=== PATIENT | male | born 1940 | race Caucasian/White ===

== ENCOUNTER 2017-08-15 09:36 | Inpatient (IN) | payer OTHER ==
[~2017-08-15] VITALS: Ht 180.3 cm; Wt 81.6 kg
--- NOTE | ~2017-08-15 | HC ---
[facility] [place] [address] CONSULTATION Name: KARY IVY Room #: 430-P [facility] IN M.R.#: [id number] Admission: 08/15/17 Attend Phys: Aren Rodriguez MD Discharge: Date of : 38 Report #: [id number] THIS REPORT FOR: //name// CC: Aren Rodriguez DATE OF SERVICE: 08/16/2017 HISTORY OF PRESENT ILLNESS: The patient is a 77-year-old white male who was admitted to [facility] with worsening gait problems. This has apparently been going on for the last few months. It affects both lower extremities and upper extremities, but primarily the lower extremities. It starts spontaneously without trauma. He does have a history of Parkinson's disease. Neurology has seen him. Diagnosis is currently uncertain. They indicate it may be part of his neurodegenerative disorder, but need to exclude the possibility of some spine pathology, polymyositis or any neuropathy. They have started with MRI scanning, which is currently pending. We are seeing him in rehabilitation medicine consultation. PAST MEDICAL HISTORY: Includes Parkinson's disease. He apparently sees a neurologist in [facility]. FAMILY HISTORY: Negative for any early age stroke. SOCIAL HISTORY: He lives with his son. This is a duplex one step. Premorbidly he has utilized a cane. He has a walker as well. REVIEW OF SYSTEMS: Decreased memory, which is premorbid. No current complaints of chest pain, shortness of breath or abdominal discomfort. FAMILY HISTORY: Noncontributory. PHYSICAL EXAMINATION: GENERAL: A 77-year-old male in no obvious distress. VITAL SIGNS: Last recorded temperature 97.5, pulse 58, respirations 16, and blood pressure 136/91. NEUROLOGIC: The patient is alert, pleasant, decreased short term memory is noted. He does follow basic 1 step commands without difficulty. EOMs are full. Some evidence of masked facies. He does have cogwheeling of both upper extremities and there is some rigidity. Lower extremities, no focal calf swelling. Some mild rigidity is noted. Strength of the upper and lower extremities is probably a grade 3+ to 4-. He does have reflexes of grade 1 in the lower extremities. He is able to stand contact guard and ambulated 75 feet with the walker standby assistance. ASSESSMENT: A 77-year-old white male with the following problem list: 1. Worsening gait/ambulation difficulty with Neurology workup underway. [address] [address] CONSULTATION Name: BIJUKARY Beltran Room #: 430-P [facility] IN [facility]#: [id number] Admission: 08/15/17 Attend Phys: Aren Rodriguez MD Discharge: Date of : 38 Report #: [id number] 2. Parkinson's disease. 3. History of osteoarthritis. 4. History of urinary frequency with some bladder incontinence in the past approximately 3 days. PLAN: Neurology workup is underway. Therapies are further evaluating him. We will be glad to assist regarding rehab therapy issues as he further medically stabilizes. <ELECTRONICALLY SIGNED> By: Too Mace MD 08/19/17 1108 1010 2247 Too Mace MD /[facility]
--- NOTE | ~2017-08-15 | HC ---
[facility] [place] [address] CONSULTATION Name: KARY IVY Room #: 430-P [facility] IN ..#: [id number] Admission: 08/15/17 Attend Phys: Aren Rodriguez MD Discharge: Date of : 38 Report #: [id number] THIS REPORT FOR: //name// CC: Aren Rodriguez DATE OF SERVICE: 08/15/2017 HISTORY OF PRESENT ILLNESS: This is a 77-year-old male patient who was evaluated by me for ambulation difficulty. The history is somewhat poorly defined, but looks like this is a chronic process, which is going on from last few months. It involved both lower extremities and upper extremity, but is worse in the lower extremity. It started spontaneously without any trauma. He said he lived with his son and was able to take care of himself prior to starting of these symptoms. He does complain of some nonspecific bladder symptoms, but it is not clear whether that is associated with this or not. REVIEW OF SYSTEMS: Positive for Parkinson disease. He indicates that he goes to a neurologist in [facility], but he does not know the name. He indicates his memory has been poor, but that is nothing recent. He does have a history of osteoarthritis. To the Emergency Room physician, he has indicated that he may be having some neck pain, but that is not a very prominent pain. This is his relevant 14-point review of systems. PAST MEDICAL HISTORY: Positive for Parkinson disease. FAMILY HISTORY: Negative for any early age stroke. SOCIAL HISTORY: He lives with his son. PHYSICAL EXAMINATION: NEUROLOGIC: He is alert. He is responsive. He can tell me what month it is and what hospital he is in, but he has 0 out of 3 memory at 2 minutes interval. His speech looks intact. His cranial nerve examination 2-12 is unremarkable. He is profoundly weak in all 4 extremities. Lower extremities, he can barely move. Even the upper extremity, he has pretty significant deficit. His position sense is intact. His reflexes are present in the lower extremity. I cannot tell about plantars. He does not have much cerebellar sign and I could not look at the patient's fundus. He is a well-developed individual who does not have any dysmorphic features of eyes, ears and face. His vision and hearing looks adequate. He has unhealthy looking skin in both lower extremities. His pulses are difficult to feel. He has no edema, cyanosis or jaundice. His heart sounds were normal and there is no murmur or arrhythmias. He does not have any [place] [address] CONSULTATION Name: KARY IVY Room #: 430-P [facility].#: [id number] Admission: 08/15/17 Attend Phys: Aren Rodriguez MD Discharge: Date of : 38 Report #: [id number] VITAL SIGNS: His blood pressure is 147/94, respirations 16, pulse is 64, temperature is 97.4. LABORATORY DATA: Indicate a white count of 7.3 and his sodium is normal. There is no imaging study of CLOTH GRADER SUPERVISOR system. IMPRESSION: There is a huge number of diagnoses which are possible in this patient, which can cause him problems like this. It may be old part of his neurodegenerative disorder, but we need to exclude the possibility of some spine pathology, polymyositis or any neuropathy. Workup is going to be pretty extensive and difficult in this patient, but we will try. I discussed that aspect with him. Although, he has memory disturbances, I discussed with him and I think he understands it. He wants to have the testing done. He does not have any contraindication for MRI. RECOMMENDATIONS: 1. I will get a CT of the head and do CT of the C-spine at the same time because he was complaining of some pain there. 2. I will get an MRI done on this patient and do more blood workup. We will get him evaluated by physical therapy and I do not believe his Parkinson features are severe enough to justify changing his medication and we will try to concentrate on evaluating for any other etiology. I discussed all of it with the patient in detail and he understands and he wants to follow up with this plan. More than 50 minutes of time was spent taking care of this patient today and majority of that time was spent counseling this patient on what we will do and is alternating. <ELECTRONICALLY SIGNED> By: Martinez Oliva MD 08/16/17 1728 1944 0351 Martinez Oliva MD /nt
--- NOTE | ~2017-08-15 | EKG ---
[address] [place] [address] ELECTROCARDIOGRAM REPORT Name: KARY IVY Room #: 430-P ADM IN M.R.#: [id number] Admission: 08/15/17 Attend Phys: Aren Rodriguez MD Discharge: Date of : 38 Report #: [id number] THIS REPORT FOR: //name// [facility] ED Test Date: 2017-08-15 Test Time: 10:23:13 Pat Name: KARY IVY Department: Room: 430 Gender: M Maxillofacial Prosthetics Dentist: APPLE : 1940 Requested By: Josué Kelley Order Number: [id number] MD: Jose Armando Seo Measurements Intervals [place] Rate: 59 P: 28 ID: [id number] QRS: -32 QRSD: 102 T: QT: 478 QTc: 474 Interpretive Statements Sinus rhythm Left axis deviation RSR' in V1 or V2, probably normal variant Nonspecific T abnormalities, lateral leads Compared to ECG 12/31/2011 13:44:16 Left-axis deviation now present RSR' in V1 or V2 now present Sinus bradycardia no longer present T-wave abnormality still present Electronically Signed On 08-15-2017 17:01:56 OTR TANKER TRUCK DRIVER by Jose Armando Seo [email or web address] <ELECTRONICALLY SIGNED> By: Jose Armando Seo MD 08/15/17 1701 1023 1023 Jose Armando Seo MD /EPI
[~2017-08-15 09:36] MED LIST: AFLURIA 2045 MCG/0.4; ASPIRIN325 PO; B-12250 MCG PO; CARBIDOPA PO; CELEXA 10 MG TA10 M1 PO; CRESTOR20 MG PO; CYCLOBENZAPRINE10 MG PO; Docusate Sodium PO; FINASTERIDE PO; HYDROCODON-ACE1 EAC7 PO; HYDROCODON-ACE1 EACH PO; Hydrocodone-Apap 5-325 Tablet PO; LASIX 20 MG TAB20 MG PO; LASIX 40 MG TAB40 M1 PO; LEVODOPA PO; MESTINON60 MG PO; NORFLEX100 MG PO; PNEUMOVAX25 MCG/0.5; POTASSIUM20 PO; PROAMATINE2.5 MG PO; PROSCAR 5MG TABL5 M1 PO; REQUIP 1 MG TABL1 M1 PO; REQUIP PO; REQUIP XL2 MG; VITAMIN B-12500 MCG PO; VITAMIN B12 500 MCG PO
[2017-08-15 09:42] VITALS: BP 147/94
[2017-08-15] MEDS ORDERED: LIPITOR 20 MG T20 M1 PO (09:50)
[2017-08-15] MEDS ORDERED: MIBELAS 24 FE1 EACH PO (09:51)
[2017-08-15 10:09] LABS: ABSOLUTE NEUTROPHILS 5.1 thou/uL (1.4-8.2); BASOPHILS 0.8 % (0.0-2.0); EOSINOPHILS 2.1 % (0.0-3.0); HEMATOCRIT 42.6 % (42.0-52.0); HEMOGLOBIN 14.1 gm/dL (14.0-18.0); LYMPHOCYTES 18.7 % (24.0-44.0); MANUAL DIFF NO; MCH 32.2 pg (26.0-34.0); MCHC 33.1 g/dL (28.0-37.0); MCV 97.3 fL (80.0-100.0); MONOCYTES 8.9 % (1.0-8.0); PLATELET COUNT 179 thou/uL (150-400); POLYS 69.5 % (36.0-66.0); RBC 4.38 mil/uL (4.50-6.00); RDW 13.7 % (10.5-14.5); WBC 7.3 thou/uL (4.0-11.0)
[2017-08-15 10:19] LABS: ANION GAP 7 mmol/L (7-16); BUN 22 mg/dL (7-18); CALCIUM 9.9 mg/dL (8.5-10.1); CHLORIDE 108 mmol/L (98-107); CO2 28 mmol/L (21-32); CREATININE 1.1 mg/dL (0.7-1.3); GLUCOSE 101 mg/dL (74-106); SODIUM 143 mmol/L (136-145)
[2017-08-15 10:22] LABS: INR 1.1; PROTIME 10.9 Seconds (9.3-11.4)
[2017-08-15 10:27] LABS: ALKALINE PHOSPHATASE 137 U/L (46-116); SGOT 15 U/L (15-37); SGPT 12 U/L (30-65); TOTAL BILIRUBIN 1.7 mg/dL (<0.1-1.0); TOTAL PROTEIN 7.6 g/dL (6.4-8.2); TROPONIN-I < 0.04 ng/mL (<0.06)
[2017-08-15 12:46] LABS: URINE BILIRUBIN NEGATIVE (Negative); URINE BLOOD 3+ (Negative); URINE COLOR YELLOW; URINE GLUCOSE-RANDOM* NEGATIVE (Negative); URINE KETONES TRACE (Negative); URINE NITRITE NEGATIVE (Negative); URINE PROTEIN (DIPSTICK) NEGATIVE (Negative)
[2017-08-15 12:53] LABS: CASTS None Seen /LPF (None Seen); CRYSTALS None Seen /LPF (None Seen); RENAL EPITHELIAL CELLS 0-3 Few /LPF (None Seen); SQUAMOUS None Seen /LPF (0-3); URINE RBC >20 Many /HPF (0-2)
[2017-08-15 12:54] LABS: BACTERIA 1-9 Few /HPF (None Seen); URINE WBC None Seen /HPF (0-5)
[2017-08-15 13:17] VITALS: BP 147/94
[2017-08-15 20:00] VITALS: BP 139/88
[2017-08-16 04:30] VITALS: BP 176/117
[2017-08-16 07:04] LABS: TSH 1.843 uIU/mL (0.358-3.740)
[2017-08-16 07:31] VITALS: BP 136/91
[2017-08-16 08:08] LABS: CALCIUM 8.7 mg/dL (8.5-10.1); CREATININE 0.9 mg/dL (0.7-1.3); HEMATOCRIT 37.9 % (42.0-52.0); HEMOGLOBIN 12.6 gm/dL (14.0-18.0); MCH 32.6 pg (26.0-34.0); MCHC 33.3 g/dL (28.0-37.0); MCV 97.7 fL (80.0-100.0); RBC 3.88 mil/uL (4.50-6.00); RDW 13.8 % (10.5-14.5); WBC 7.2 thou/uL (4.0-11.0)
[2017-08-16 16:49] VITALS: BP 155/91
[2017-08-16 20:00] VITALS: BP 166/93
[2017-08-17 04:00] VITALS: BP 193/95
[2017-08-17 08:04] VITALS: BP 135/88
[2017-08-17 16:30] VITALS: BP 158/84
[2017-08-17 20:25] VITALS: BP 154/98
[2017-08-17 22:18] VITALS: BP 152/102
[2017-08-17 23:32] VITALS: BP 178/93
[2017-08-18 05:19] VITALS: BP 177/87
[2017-08-18 09:03] VITALS: BP 167/88
[2017-08-18 09:49] LABS: HEMATOCRIT 39.2 % (42.0-52.0); HEMOGLOBIN 12.9 gm/dL (14.0-18.0); MCH 32.3 pg (26.0-34.0); MCV 97.8 fL (80.0-100.0); RBC 4.01 mil/uL (4.50-6.00); RDW 13.8 % (10.5-14.5); WBC 6.1 thou/uL (4.0-11.0)
[2017-08-18 09:56] LABS: CALCIUM 9.5 mg/dL (8.5-10.1); CREATININE 0.7 mg/dL (0.7-1.3); POTASSIUM 3.4 mmol/L (3.5-5.1)
[2017-08-18 16:02] VITALS: BP 138/79
[2017-08-18 19:51] VITALS: BP 165/85
[2017-08-19 00:10] VITALS: BP 154/88
[2017-08-19 04:14] VITALS: BP 158/93
[2017-08-19 08:08] VITALS: BP 162/85
[2017-08-19] MEDS ORDERED: CARBIDOPA-LEVO1 EAC9 PO (12:56)
[2017-08-19] MEDS ORDERED: MIRALAX17 GM PO (12:57)
[2017-08-19] MEDS ORDERED: CEFDINIR300 MG PO (12:59)
== END 2017-08-19 16:34 | DRG 57 ==
LOC: ER 09:36 → EROBS 12:58 → 4E 12:58
PROVIDERS: Family Medicine; Physician Assistant; Psychiatry & Neurology Neuromuscular Medicine
DX: G20 Parkinson's disease (principal); N17.9 Acute kidney failure, unspecified; N39.0 Urinary tract infection, site not specified; I95.1 Orthostatic hypotension; F32.9 Major depressive disorder, single episode, unspecified; M19.90 Unspecified osteoarthritis, unspecified site; E78.5 Hyperlipidemia, unspecified; I10 Essential (primary) hypertension; M48.00 Spinal stenosis, site unspecified; Z79.899 Other long term (current) drug therapy; W18.39XA Other fall on same level, initial encounter; Y93.89 Activity, other specified; Y92.89 Other specified places as the place of occurrence of the external cause; Y99.8 Other external cause status
CPT/HCPCS: 10084

== ENCOUNTER 2017-09-17 12:29 | Inpatient (IN) | payer OTHER ==
[~2017-09-17] VITALS: Ht 185.4 cm; Wt 85.9 kg
--- NOTE | ~2017-09-17 | H ---
[facility] [place] [address] HISTORY AND PHYSICAL Name: KARY IVY Room #: 422-P ADM IN M.R.#: [id number] Admission: 09/17/17 Attend Phys: Phil Guerrero MD Discharge: Date of : 38 Report #: [id number] THIS REPORT FOR: //name// CC: Aren Guerrero DATE OF SERVICE: 09/17/2017 CHIEF COMPLAINT: Generalized weakness. HISTORY OF PRESENT ILLNESS: The patient is a 77-year-old male who was just discharged from rehabilitation facility today, was brought into the Emergency Room by the family because of progressive weakness. The patient was admitted here at [facility] on 08/16/2017 for weakness and UTI. The patient was seen by Dr. Mace and Dr. Oliva from Neurology. The patient has a positive medical history of Parkinson disease and he goes to neurologist at [facility]. He had extensive MRI scans done which showed DJD, but no significant spinal stenosis. Outpatient EMG studies were recommended by Dr. Oliva. Dr. Oliva neuropathy. He was also started on Mestinon for possible orthostatic hypotension. There has been no change in his medication. No fever or chills. The patient has had some poor appetite. His weakness is generalized and more particularly in the lower extremity. The patient denies any urinary hesitancy. He does have some urinary incontinence and urinary frequency. He denies any fever or chills. No nausea or vomiting. No chest pain. No shortness of breath or cough. PAST MEDICAL HISTORY: Significant for Parkinson disease, depression, hyperlipidemia, osteoarthritis, DJD. FAMILY HISTORY: Negative for any CVA. SOCIAL HISTORY: He was living with his son before. No smoking, alcohol abuse or illicit drug abuse. ALLERGIES: No known drug allergy. HOME MEDICATIONS: Reviewed. REVIEW OF SYSTEMS: CONSTITUTIONAL: He might have lost few pounds. No fever or chills. EYES: No changes in vision. THROAT: Denies any sore throat. CARDIOVASCULAR: No chest pain, dizziness, palpitations. RESPIRATORY: No cough or expectoration. GASTROINTESTINAL: No nausea or vomiting. [facility] [address] [place] [address] HISTORY AND PHYSICAL Name: KARY IVY Room #: 422-P [facility]#: [id number] Admission: 09/17/17 Attend Phys: Phil Guerrero MD Discharge: Date of : 38 Report #: [id number] GENITOURINARY: No dysuria or hematuria at present. NEUROLOGIC: Complains of generalized weakness. Review of system is negative other than the positive and negative dictated in the history of present illness and the review of system. PHYSICAL EXAMINATION: VITAL SIGNS: Reviewed. Blood pressure is 124/69; on arrival, his blood pressure was 95/61. His heart rate is 63 per minute, afebrile. GENERAL: He is kind of lying down on the bed with his eyes closed, but he does wake up and answer questions. The patient's family is at bedside, not in any acute respiratory distress. EYES: Pupils equal, reactive to light. THROAT: Appears normal. NECK: Supple, no JVD, no bruit, no lymphadenopathy. CARDIOVASCULAR SYSTEM: S1, S2 heard, no S3, no murmur. CHEST: Bilateral air entry present. Clear on auscultation. ABDOMEN: Soft, bowel sounds present, no mass, no organomegaly, no tenderness. PERIPHERY: No pedal edema. No calf tenderness. Dorsalis pedis 1+. NEUROLOGICAL: No facial asymmetry noted. Pupils are equal, reacting to light. Power is 4-5/5 in upper extremity and 4/5 in the lower extremity. No obvious sensory deficit noted. EXTREMITIES: Lower extremity does have 1+ pedal edema. LABORATORY DATA: Reviewed. He had a chest x-ray done, which showed trace left pleural effusion, left basilar atelectasis, hiatal hernia. MRI of the lumbar spine showed mild to moderate multilevel degenerative disk disease, no significant central spinal canal stenosis. He had a CT of his cervical spine which showed degenerative changes, no acute process. Thoracic spine MRI showed moderate scoliosis without any stenosis. He had a CT of the brain done last time, which showed atrophic changes. His white count is 12.8, hemoglobin is 14. INR was 1.1 last month. BUN and creatinine are slightly elevated at 18 and 1.3. His troponin was 0.05. He had an EKG done today, which shows sinus rhythm, no significant changes. ASSESSMENT: 1. Generalized weakness. Could be secondary to his orthostatic hypotension, rule out any infectious process. He did have a similar presentation last month. Neurologist was consulted and the patient is awaiting on further testing including an EMG. The patient will be hydrated with IV fluid. We will watch his orthostatic blood pressure closely. We will consult neurologist, Dr. Oliva. We will continue with Mestinon. 2. Parkinson disease. The patient will be continued on his carbidopa/levodopa. Monitor. 3. Urinary hesitancy and incontinence. UA did not reveal any evidence of any infection. [facility] [address] [place] [address] HISTORY AND PHYSICAL Name: KARY IVY Room #: 422-P [facility] IN ..#: [id number] Admission: 09/17/17 Attend Phys: Phil Guerrero MD Discharge: Date of : 38 Report #: [id number] 4. Mild leukocytosis. We will check on an influenza screen. 5. Mild dehydration. The patient will be hydrated with IV fluid. We will repeat his labs in the morning. 6. Deep venous thrombosis prophylaxis. He will be placed on sequential compression devices on the legs for deep venous thrombosis prophylaxis. 7. Lower extremity swelling. We will obtain a venous Doppler to rule out any deep vein thrombosis. I have also ordered a CT of the chest to further evaluate this left lower lobe atelectasis and also rule out any pulmonary embolism. 8. Treatment plan has been explained to the patient and the family in detail. 9. We will also check on liver function tests. 10. Physical and Occupational Therapy has been consulted. <ELECTRONICALLY SIGNED> By: Phil Guerrero MD 09/18/17 1114 1541 1745 Phil Guerrero MD /nt
--- NOTE | ~2017-09-17 | HC ---
[facility] [place] [address] CONSULTATION Name: KARY IVY Room #: 422-P [facility].#: [id number] Admission: 09/17/17 Attend Phys: Aren Rodriguez MD Discharge: 09/23/17 Date of : 38 Report #: [id number] THIS REPORT FOR: //name// CC: [facility]ren [facility] DATE OF SERVICE: 09/17/2017 HISTORY OF PRESENT ILLNESS: This is a 77-year-old male patient who indicates that he just went home from rehab and he felt very weak and that is why he came back to the hospital. He said most of the weakness was in the lower extremities. It started spontaneously without any trauma. He does not know what brought him on but looks like on admission, his blood pressure was only 95/61. I had seen this patient during his acute hospitalization and this patient had a pretty extensive workup done at that time. REVIEW OF SYSTEMS: Indicate that the patient has a known Parkinson disease. If I remember correctly, he had some postural hypotension for which Mestinon was started. We could not evaluate this patient for myasthenia gravis because the hospital policy does not allow sending acetylcholine receptor, but I will see if we can get an exception to that. We did check a CPK and his CPK was normal. This patient's review of systems indicate that is his WBC count is elevated. He did have a TSH and vitamin B12 last time and that was unremarkable. He does have Parkinson disease and his medication was recently adjusted and that problem appeared to be stable. We do not have any facility to do EMG here and in the hospital and hence that could not be accomplished. He does have some history of urinary incontinence. He also has a history of depression in the past. He denies any change in his vision or any new ENT, cardiac, respiratory, GI, musculoskeletal, constitutional, dermatological, hematological, psychiatric, throat, allergic symptom associated with present symptomatology and his 14-point review of system was noncontributory. PAST MEDICAL HISTORY: Positive for Parkinson disease. FAMILY HISTORY: Negative for early age stroke. SOCIAL HISTORY: Used to live with his son but is getting weaker. PHYSICAL EXAMINATION: NEUROLOGICAL: Indicate that he is alert. He is responsive. He can tell me the month, could not tell me the date. His speech looks intact. His memory and fund of knowledge is poor. Cranial nerve examination 2-12 is unremarkable. Neuromuscular examinations indicate that he is weak in all four extremities. His maximum weakness appeared to be in the proximal musculature of the lower extremities. His reflexes are well elicited in the lower extremities. His position sense is normal. His tone looks unremarkable. He does not have any [address] [address] CONSULTATION Name: KARY IVY JR Room #: 422-P [facility] IN ..#: [id number] Admission: 09/17/17 Attend Phys: Aren Rodriguez MD Discharge: 09/23/17 Date of : 38 Report #: [id number] cerebellar sign or papilledema. His pulses in the lower extremities are nicely palpable. EXTREMITIES: He has no edema. GENERAL: He is a very well-developed individual who does not have any dysmorphic features of eyes, ears and face. HEENT: His vision and hearing looks adequate. CARDIAC: Examination does not appear to be showing any abnormal heart sound or murmur or atrial fibrillation. RESPIRATORY: He does have an occasional rhonchi but no marked respiratory difficulty. VITAL SIGNS: Indicate blood pressure 159/98, respiration is 22, pulse is 73 and temperature is 98.6. LABORATORY DATA: He does have a slightly increased white count at 12.8. He did not have any brain imaging study during this admission, but he had imaging studies during last admission. IMPRESSION: It is not clear what the etiology of the patient's weakness is. He needs an EMG, which we cannot do in the hospital. I will see if we can ask a pathologist to make an exception to send the patient acetylcholine receptor antibody. He did have some postural hypotension and that may have contributed to his symptoms. He does have a slightly increased WBC count and that need to be worked up to make sure there is no etiology there. RECOMMENDATIONS: I discussed all of it with the patient and I think we should get him reevaluated by PT and OT. Check him for any postural hypotension again. We will see if myasthenia markers can be checked but he needs EMG, but that has to be done as an outpatient. If weakness continued to be localized to the patient's legs and especially proximal musculature, then CT scan of the pelvis may have to be done to complete the workup. I discussed all of it with the patient in detail and more than 50 minutes of time was spent taking care of this patient today and majority of that time was spent counseling this patient and coordinating his care. Thank you very much for this referral. <ELECTRONICALLY SIGNED> By: Martinez Oliva MD 09/26/17 1815 1834 0200 Martinez Oliva MD /nt
--- NOTE | ~2017-09-17 | EKG ---
[address] [place] [address] ELECTROCARDIOGRAM REPORT Name: KARY IVY JR Room #: 422-P ADM IN M.R.#: [id number] Admission: 09/17/17 Attend Phys: Phil Guerrero MD Discharge: Date of : 38 Report #: [id number] THIS REPORT FOR: //name// [facility] ED Test Date: 2017-09-17 Test Time: 13:13:25 Pat Name: KARY IVY Department: Room: 422 Gender: M Solid Center Winder: JLAMBLEIGHA : 1940 Requested By: Primitivo Vicente Order Number: [id number] MD: Lev Huitron Measurements Intervals [place] Rate: 67 P: 67 HI: 151 QRS: -14 QRSD: 101 T: 30 QT: 407 QTc: 430 Interpretive Statements Sinus rhythm No significant abnormality Compared to ECG 08/15/2017 10:23:13 T-wave abnormality no longer present Electronically Signed On 09-18-2017 14:23:11 HAMMERER HELPER by Lev Huitron [email or web address] <ELECTRONICALLY SIGNED> By: Lev Huitron MD, [facility] 09/18/17 1423 12 12 Lev Huitron MD, [facility] /EPI
[~2017-09-17 12:29] MED LIST changes: +CARBIDOPA-LEVO1 EAC9 PO; +CEFDINIR300 MG PO; +LIPITOR 20 MG T20 M1 PO; +MIBELAS 24 FE1 EACH PO; +MIRALAX17 GM PO
[2017-09-17 12:39] VITALS: BP 95/61
[2017-09-17 13:40] LABS: HEMATOCRIT 41.4 % (42.0-52.0); MCH 32.8 pg (26.0-34.0); MCHC 33.8 g/dL (28.0-37.0); MCV 96.8 fL (80.0-100.0); PLATELET COUNT 188 thou/uL (150-400); RBC 4.28 mil/uL (4.50-6.00); WBC 12.8 thou/uL (4.0-11.0)
[2017-09-17 13:54] LABS: CALCIUM 9.5 mg/dL (8.5-10.1); CREATININE 1.3 mg/dL (0.7-1.3); POTASSIUM 3.9 mmol/L (3.5-5.1)
[2017-09-17 14:04] LABS: TROPONIN-I 0.05 ng/mL (<0.06)
[2017-09-17 14:18] LABS: ABSOLUTE NEUTROPHILS 10.9 thou/uL (1.4-8.2)
[2017-09-17 14:33] LABS: URINE BILIRUBIN NEGATIVE (Negative); URINE BLOOD NEGATIVE (Negative); URINE CLARITY CLEAR; URINE COLOR YELLOW; URINE GLUCOSE-RANDOM* NEGATIVE (Negative); URINE KETONES TRACE (Negative); URINE LEUKOCYTES-REFLEX NEGATIVE (Negative); URINE NITRITE-REFLEX NEGATIVE (Negative); URINE PROTEIN (DIPSTICK) NEGATIVE (Negative); URINE UROBILINOGEN 0.2 E.U./dl (0.2-1.0)
[2017-09-17 16:00] LABS: ALBUMIN 3.4 g/dL (3.4-5.0); DIRECT BILIRUBIN 0.4 mg/dL (<0.1-0.3); TOTAL BILIRUBIN 1.4 mg/dL (<0.1-1.0); TOTAL PROTEIN 7.1 g/dL (6.4-8.2)
[2017-09-17 16:52] VITALS: BP 127/62
[2017-09-17 16:59] VITALS: BP 132/86
[2017-09-17 17:25] VITALS: BP 159/98
[2017-09-17 19:41] VITALS: BP 133/75
[2017-09-18 04:13] VITALS: BP 122/71; BP 1228/71
[2017-09-18 05:56] LABS: HEMATOCRIT 33.6 % (42.0-52.0); MCH 33.3 pg (26.0-34.0); MCHC 34.5 g/dL (28.0-37.0); MCV 96.7 fL (80.0-100.0); PLATELET COUNT 154 thou/uL (150-400); RBC 3.48 mil/uL (4.50-6.00); RDW 13.1 % (10.5-14.5); WBC 12.5 thou/uL (4.0-11.0)
[2017-09-18 05:58] LABS: HEMOGLOBIN 11.6 gm/dL (14.0-18.0)
[2017-09-18 06:04] LABS: CALCIUM 8.4 mg/dL (8.5-10.1); CREATININE 0.9 mg/dL (0.7-1.3); POTASSIUM 3.7 mmol/L (3.5-5.1)
[2017-09-18 08:34] VITALS: BP 118/77
[2017-09-18 11:47] LABS: ABSOLUTE NEUTROPHILS 10.3 thou/uL (1.4-8.2)
[2017-09-18 11:48] LABS: ANISOCYTOSIS SLIGHT
[2017-09-18 16:02] VITALS: BP 155/97
[2017-09-18 19:36] VITALS: BP 143/76; BP 413/76
[2017-09-19 04:15] VITALS: BP 167/80
[2017-09-19 07:50] VITALS: BP 158/100
[2017-09-19 14:35] VITALS: BP 113/74
[2017-09-19 19:39] VITALS: BP 102/72
[2017-09-20 04:14] VITALS: BP 153/86
[2017-09-20 06:53] LABS: HEMATOCRIT 32.5 % (42.0-52.0); HEMOGLOBIN 11.3 gm/dL (14.0-18.0); MCH 33.1 pg (26.0-34.0); MCHC 34.7 g/dL (28.0-37.0); MCV 95.2 fL (80.0-100.0); RBC 3.41 mil/uL (4.50-6.00); RDW 12.8 % (10.5-14.5); WBC 9.7 thou/uL (4.0-11.0)
[2017-09-20 10:35] VITALS: BP 114/76
[2017-09-20 16:00] VITALS: BP 165/96
[2017-09-20 19:23] VITALS: BP 162/90
[2017-09-21 03:47] VITALS: BP 151/85
[2017-09-21 15:36] VITALS: BP 142/89
[2017-09-21 20:30] VITALS: BP 155/99
[2017-09-22 04:30] VITALS: BP 157/82
[2017-09-22 07:39] VITALS: BP 161/92
[2017-09-22] MEDS ORDERED: CIPROFLOXIN HC2.5 M1 OPHTHALMIC (14:06)
[2017-09-22] MEDS ORDERED: ENOXAPARIN40 MG/0.1 SUBQ (14:06)
[2017-09-22 16:47] VITALS: BP 180/103
[2017-09-22 20:40] VITALS: BP 169/95
[2017-09-23 04:11] VITALS: BP 162/84
[2017-09-23 04:53] LABS: CALCIUM 8.6 mg/dL (8.5-10.1); CREATININE 0.8 mg/dL (0.7-1.3); POTASSIUM 3.2 mmol/L (3.5-5.1)
[2017-09-23 07:45] VITALS: BP 139/74
[2017-09-23] MEDS ORDERED: PREDNISONE 10 M10 MG PO (12:14)
[2017-09-23 14:25] VITALS: BP 134/78
== END 2017-09-23 17:05 | DRG 312 ==
LOC: ER 12:29 → 4E 15:03 → EROBS 15:03 → 4E 17:23
PROVIDERS: Emergency Medicine; Family Medicine; Internal Medicine
DX: I95.1 Orthostatic hypotension (principal); N17.0 Acute kidney failure with tubular necrosis; J98.11 Atelectasis; G20 Parkinson's disease; F32.9 Major depressive disorder, single episode, unspecified; E78.5 Hyperlipidemia, unspecified; M19.90 Unspecified osteoarthritis, unspecified site; E86.0 Dehydration; R39.11 Hesitancy of micturition; D72.829 Elevated white blood cell count, unspecified; H10.9 Unspecified conjunctivitis; G62.9 Polyneuropathy, unspecified; G72.9 Myopathy, unspecified; W18.39XA Other fall on same level, initial encounter; Y93.89 Activity, other specified; Z79.899 Other long term (current) drug therapy; Y92.89 Other specified places as the place of occurrence of the external cause; Y99.8 Other external cause status
CPT/HCPCS: 10084

== ENCOUNTER 2017-10-19 21:33 | Inpatient (IN) | payer OTHER ==
[~2017-10-19] VITALS: Ht 180.3 cm; Wt 81.7 kg
--- NOTE | ~2017-10-19 | EKG ---
[place] [address] [facility] [place] [address] ELECTROCARDIOGRAM REPORT Name: KARY IVY Room #: 441-P ADM IN M.R.#: [id number] Admission: 10/20/17 Attend Phys: Aren Rodriguez MD Discharge: Date of : 38 Report #: [id number] THIS REPORT FOR: //name// [facility] ED Test Date: 2017-10-19 Test Time: 22:23:07 Pat Name: KARY IVY Department: Room: Gender: M Old Testament Professor: J CARLOS : 1940 Requested By: Isaiah Stephenson Order Number: [id number] MD: Lev Huitron Measurements Intervals [place] Rate: 53 P: 59 OR: 113 QRS: -2 QRSD: 105 T: 29 QT: 456 QTc: 429 Interpretive Statements Sinus rhythm Borderline short OR interval Compared to ECG 09/17/2017 13:13:25 No significant changes Electronically Signed On 10-20-2017 8:59:00 LEARNING TECHNOLOGIST by Lev Huitron [email or web address] <ELECTRONICALLY SIGNED> By: Lev Huitron MD, [facility] 10/20/17 0859 D: [id number] Lev Huitron MD, [facility] /EPI
--- NOTE | ~2017-10-19 | EKG ---
[address] [address] ELECTROCARDIOGRAM REPORT Name: KARY IVY Room #: 441-P ADM IN M.R.#: [id number] Admission: 10/20/17 Attend Phys: Aren Rodriguez MD Discharge: Date of : 38 Report #: [id number] THIS REPORT FOR: //name// [facility] Test Date: 2017-10-20 Test Time: 13:08:00 Pat Name: KARY VIY Department: Room: 441 Gender: M Machine Shop Supervisor: Li PEÑALOZA : 1940 Requested By: Aren Rodriguez Order Number: [id number] MD: Jose Armando Seo Measurements Intervals [place] Rate: 69 P: 67 AL: 142 QRS: -21 QRSD: 96 T: 29 QT: 407 QTc: 436 Interpretive Statements Sinus rhythm Borderline left axis deviation Compared to ECG 10/19/2017 22:23:07 No significant changes Electronically Signed On 10-21-2017 8:28:29 HANDBAG FRAMER by Jose Armando Seo [email or web address] <ELECTRONICALLY SIGNED> By: Jose Armando Seo MD 10/21/17 0828 1308 1308 Jose Armando Seo MD /[facility]
--- NOTE | ~2017-10-19 | 2DMMODE ---
[facility] [address] [place] [address] 2 D/M-MODE ECHOCARDIOGRAM Name: KARY IVY Room #: 445-P [facility] IN [facility].#: [id number] Admission: 10/20/17 Attend Phys: Aren Rodriguez, Discharge: Date of : 36 Date of Service: 10/25/17 1348 Report #: [id number] THIS REPORT FOR: //name// APPROVED REPORT Study performed: 10/25/2017 11:41:31 EXAM: Comprehensive 2D, Doppler, and color-flow Echocardiogram Patient Location: Bedside Room #: [facility] Status: routine BSA: 2.00 HR: 55 bpm BP: 158/79 mmHg Other Information Study Quality: Adequate Indications Bradycardia 2D Dimensions RVDd: 42.97 mm LVEF(%): 63.74 (>50%) IVSd: 10.65 (7-11mm) LVOT Diam: 20.47 (18-24mm) LVDd: 50.53 mm PWd: 11.45 (7-11mm) Ascending Ao: 31.66 (22-36mm) LVDs: 32.94 (25-40mm) Aortic Root: 30.21 mm IVC: 21.00 mm Wagner's LVEF: 63.74 % Volumes Left Atrial Volume (Systole) Single Plane 4CH: 70.72 mL Single Plane 2CH: 63.46 mL LA ESV Index: 37.00 mL/m2 Aortic Valve AoV Peak Sandeep.: 1.32 m/s AO Peak Gr.: 6.92 mmHg LVOT Max P.60 mmHg LVOT Max V: 0.95 m/s LUKAS Vmax: 2.37 cm2 Mitral Valve E/A Ratio: 1.1 MV Decel. Time: 201.38 ms MV E Max Sandeep.: 0.79 m/s [facility] [place] [address] 2 D/M-MODE ECHOCARDIOGRAM Name: KARY IVY Room #: 445-P [facility] IN ..#: [id number] Admission: 10/20/17 Attend Phys: Aren Rodriguez, Discharge: Date of : 36 Date of Service: 10/25/17 1348 Report #: [id number] MV A Sandeep.: 0.74 m/s MV PHT: 58.40 ms IVRT: 156.86 ms Pulmonary Valve PV Peak Sandeep.: 0.91 m/s PV Peak Gr.: 3.29 mmHg Pulmonary Vein P Vein S: 0.47 m/s P Vein A: 0.30 m/s P Vein D: 0.34 m/s P Vein A Dur.: 143.0 msec P Vein S/D Ratio: 1.38 Tricuspid Valve TR Peak Sandeep.: 3.04 m/s TR Peak Gr.: 36.92 mmHg PA Pressure: 47.00 mmHg Left Ventricle The left ventricle is normal size. There is normal LV segmental wall motion. There is normal left ventricular wall thickness. The left ventricular systolic function is normal. The left ventricular ejection fraction is within the normal range. LVEF is 55-60%. Grade I - abnormal relaxation pattern. Right Ventricle Right ventricle is at the upper limits of normal. The right ventricular systolic function is normal. Atria Left atrium is dilated. Right atrium is dilated. Aortic Valve Aortic valve is calcified, trileaflet. No aortic regurgitation is present. There is no aortic valvular stenosis. Mitral Valve The mitral valve is normal in structure. Mild mitral regurgitation. No evidence of mitral valve stenosis. Tricuspid Valve The tricuspid valve is normal in structure. There is mild tricuspid regurgitation. Estimated PAP 45 mmHg. There is moderate pulmonary hypertension. Pulmonic Valve The pulmonary valve is normal in structure. Trace pulmonic [facility] [address] [place] [address] 2 D/M-MODE ECHOCARDIOGRAM Name: KARY IVY Room #: 445-P [facility] IN [facility]#: [id number] Admission: 10/20/17 Attend Phys: Aren Rodriguez, Discharge: Date of : 36 Date of Service: 10/25/17 1348 Report #: [id number] regurgitation. Great Vessels The aortic root is normal in size. IVC is normal in size and collapses >50% with inspiration. Pericardium There is no pericardial effusion. <Conclusion> The left ventricular systolic function is normal. There is normal LV segmental wall motion. LVEF is 55-60%. Grade I diastolic dysfunction Both atria are dilated. Aortic valve is calcified, trileaflet. No aortic valvular stenosis or insufficiency. The mitral valve is normal in structure. Mild mitral regurgitation. There is mild tricuspid regurgitation. Estimated pulmonary artery pressure of 45 mmHg. There is no pericardial effusion. <ELECTRONICALLY SIGNED> By: Lev Huitron MD, FACC 10/25/17 1348 1348 1348 Lev Huitron MD, FACC /INF
--- NOTE | ~2017-10-19 | EKG ---
[place] [address] [address] [place] [address] ELECTROCARDIOGRAM REPORT Name: KARY IVY Room #: 445- ADM IN M.R.#: [id number] Admission: 10/20/17 Attend Phys: Aren Rodriguez MD Discharge: Date of : 36 Report #: [id number] THIS REPORT FOR: //name// [facility] Test Date: 2017-10-25 Test Time: 09:28:44 Pat Name: KARY IVY Department: Room: 445 Gender: M Roll Off Driver: Li PEÑALOZA : 1940 Requested By: Nargis Johnson Order Number: [id number] MD: Lev Huitron Measurements Intervals [place] Rate: 59 P: 60 OK: 143 QRS: -4 QRSD: 103 T: 19 QT: 447 QTc: 443 Interpretive Statements Sinus rhythm No significant abnormality Compared to ECG 10/20/2017 13:08:00 No significant changes Electronically Signed On 10-26-2017 8:52:26 PHILOSOPHY SPECIALIST by Lev Huitron [email or web address] <ELECTRONICALLY SIGNED> By: Lev Huitron MD, [facility] 10/26/17 0852 7 7 Lev Huitron MD, [facility] /EPI
[~2017-10-19 21:33] MED LIST changes: +CIPROFLOXIN HC2.5 M1 OPHTHALMIC; +ENOXAPARIN40 MG/0.1 SUBQ; +PREDNISONE 10 M10 MG PO
[2017-10-19 21:37] VITALS: BP 138/85
[2017-10-19 22:31] LABS: ABSOLUTE NEUTROPHILS 7.1 thou/uL (1.4-8.2); BASOPHILS 0.8 % (0.0-2.0); EOSINOPHILS 0.7 % (0.0-3.0); HEMATOCRIT 30.6 % (42.0-52.0); HEMOGLOBIN 10.3 gm/dL (14.0-18.0); LYMPHOCYTES 11.1 % (24.0-44.0); MCH 31.9 pg (26.0-34.0); MCHC 33.8 g/dL (28.0-37.0); MCV 94.2 fL (80.0-100.0); MONOCYTES 8.1 % (1.0-8.0); PLATELET COUNT 216 thou/uL (150-400); POLYS 79.3 % (36.0-66.0); RBC 3.25 mil/uL (4.50-6.00); RDW 14.2 % (10.5-14.5)
[2017-10-19 22:42] LABS: ANION GAP 8 mmol/L (7-16); BUN 25 mg/dL (7-18); CHLORIDE 106 mmol/L (98-107); CO2 28 mmol/L (21-32); GLUCOSE 94 mg/dL (74-106); POTASSIUM 4.2 mmol/L (3.5-5.1); SODIUM 142 mmol/L (136-145)
[2017-10-19 22:50] LABS: ALBUMIN 2.7 g/dL (3.4-5.0); SGOT 14 U/L (15-37); SGPT 13 U/L (30-65); TOTAL BILIRUBIN 1.2 mg/dL (<0.1-1.0); TOTAL PROTEIN 6.3 g/dL (6.4-8.2); TROPONIN-I < 0.04 ng/mL (<0.06)
[2017-10-19 23:31] LABS: URINE BILIRUBIN NEGATIVE (Negative); URINE BLOOD 3+ (Negative); URINE CLARITY CLEAR; URINE COLOR YELLOW; URINE GLUCOSE-RANDOM* NEGATIVE (Negative); URINE KETONES NEGATIVE (Negative); URINE NITRITE-REFLEX NEGATIVE (Negative); URINE PROTEIN (DIPSTICK) TRACE (Negative); URINE UROBILINOGEN 0.2 E.U./dl (0.2-1.0)
[2017-10-19 23:38] LABS: URINE LEUKOCYTES-REFLEX 1+ (Negative)
[2017-10-19 23:52] LABS: BACTERIA-REFLEX >30 Many /HPF (None Seen); CASTS None Seen /LPF (None Seen); CRYSTALS None Seen /LPF (None Seen); SQUAMOUS 0-3 Few /LPF (0-3); URINE RBC >20 Many /HPF (0-2)
[2017-10-20 00:27] VITALS: BP 116/58
[2017-10-20 00:50] VITALS: BP 137/84
[2017-10-20 04:00] VITALS: BP 139/116
[2017-10-20 06:05] VITALS: BP 146/89
[2017-10-20 09:15] VITALS: BP 139/71
[2017-10-20 13:10] LABS: HEMATOCRIT 28.5 % (42.0-52.0); HEMOGLOBIN 9.6 gm/dL (14.0-18.0); MCH 32.1 pg (26.0-34.0); MCHC 33.7 g/dL (28.0-37.0); MCV 95.2 fL (80.0-100.0); RBC 2.99 mil/uL (4.50-6.00); RDW 14.2 % (10.5-14.5)
[2017-10-20 13:26] LABS: ALBUMIN 2.2 g/dL (3.4-5.0); CALCIUM 8.2 mg/dL (8.5-10.1); CREATININE 1.6 mg/dL (0.7-1.3); POTASSIUM 3.9 mmol/L (3.5-5.1); TOTAL BILIRUBIN 0.8 mg/dL (<0.1-1.0); TOTAL PROTEIN 5.4 g/dL (6.4-8.2)
[2017-10-20 16:24] VITALS: BP 139/77
[2017-10-21 03:49] VITALS: BP 157/91
[2017-10-21 08:00] VITALS: BP 143/85
[2017-10-21 16:00] VITALS: BP 171/93
[2017-10-21 19:38] VITALS: BP 142/78
[2017-10-22 03:57] LABS: CALCIUM 8.1 mg/dL (8.5-10.1); CREATININE 1.1 mg/dL (0.7-1.3); POTASSIUM 3.3 mmol/L (3.5-5.1)
[2017-10-22 04:00] VITALS: BP 153/92
[2017-10-22 07:45] VITALS: BP 143/77
[2017-10-22 10:24] LABS: HEMATOCRIT 28.4 % (42.0-52.0); HEMOGLOBIN 9.9 gm/dL (14.0-18.0); MCH 33.1 pg (26.0-34.0); MCHC 34.7 g/dL (28.0-37.0); MCV 95.3 fL (80.0-100.0); RBC 2.98 mil/uL (4.50-6.00); RDW 13.8 % (10.5-14.5); WBC 5.7 thou/uL (4.0-11.0)
[2017-10-22 16:55] VITALS: BP 143/93
[2017-10-22 16:58] VITALS: BP 172/88
[2017-10-22 17:00] VITALS: BP 125/74
[2017-10-22 20:10] VITALS: BP 154/98
[2017-10-23 01:04] VITALS: BP 141/53
[2017-10-23 05:50] VITALS: BP 146/75
[2017-10-23 16:33] VITALS: BP 147/84
[2017-10-24 04:55] VITALS: BP 147/90
[2017-10-24 08:00] VITALS: BP 150/84
[2017-10-24] MEDS ORDERED: REMERON 30 MG T30 M1 PO (11:55)
[2017-10-24] MEDS ORDERED: MIDODRINE HCL 55 M1 PO (11:56)
[2017-10-24] MEDS ORDERED: TYLENOL325 MG PO (11:57)
[2017-10-24] MEDS ORDERED: SINEMET 25-1001 EAC1 PO (11:59)
[2017-10-24] MEDS ORDERED: PREDNISONE 10 M10 MG PO (12:58)
[2017-10-24 14:12] VITALS: BP 150/84
[2017-10-24 16:00] VITALS: BP 147/89
[2017-10-24 20:31] VITALS: BP 160/68
[2017-10-25 04:54] VITALS: BP 130/65
[2017-10-25] MEDS ORDERED: PYRIDOSTIGMINE60 M1 PO (07:58)
[2017-10-25 08:20] VITALS: BP 158/79
[2017-10-25 17:02] VITALS: BP 180/100
[2017-10-25 19:43] VITALS: BP 156/91
[2017-10-26 03:14] VITALS: BP 182/95
[2017-10-26 09:58] VITALS: BP 157/91
== END 2017-10-26 17:10 | DRG 308 ==
LOC: ER 21:33 → 4S 10-20 00:27
PROVIDERS: Family Medicine; Physician Assistant
DX: R00.1 Bradycardia, unspecified (principal); E43 Unspecified severe protein-calorie malnutrition; N17.9 Acute kidney failure, unspecified; N39.0 Urinary tract infection, site not specified; B96.1 Klebsiella pneumoniae [K. pneumoniae] as the cause of diseases classified elsewhere; G20 Parkinson's disease; I95.1 Orthostatic hypotension; F32.9 Major depressive disorder, single episode, unspecified; M19.90 Unspecified osteoarthritis, unspecified site; E86.0 Dehydration; G70.00 Myasthenia gravis without (acute) exacerbation; E78.5 Hyperlipidemia, unspecified; F02.80 Dementia in other diseases classified elsewhere, unspecified severity, without behavioral disturbance, psychotic disturbance, mood disturbance, and anxiety; Z87.440 Personal history of urinary (tract) infections; T44.0X5A Adverse effect of anticholinesterase agents, initial encounter
CPT/HCPCS: 10100

== ENCOUNTER 2017-10-30 12:09 | Emergency (ER) | payer OTHER ==
[~2017-10-30] VITALS: Ht 180.3 cm; Wt 82.6 kg
[~2017-10-30 12:09] MED LIST changes: +MIDODRINE HCL 55 M1 PO; +PYRIDOSTIGMINE60 M1 PO; +REMERON 30 MG T30 M1 PO; +SINEMET 25-1001 EAC1 PO; +TYLENOL325 MG PO
[2017-10-30 15:16] VITALS: BP 158/74
== END 2017-10-30 15:16 | disposition home or self-care (01) ==
LOC: ER 12:09
DX: S01.91XA Laceration without foreign body of unspecified part of head, initial encounter (principal); E78.5 Hyperlipidemia, unspecified; M19.90 Unspecified osteoarthritis, unspecified site; W18.09XA Striking against other object with subsequent fall, initial encounter; Y93.89 Activity, other specified; Y92.89 Other specified places as the place of occurrence of the external cause; Y99.8 Other external cause status